=== PATIENT | female | born 1995 | race Caucasian/White ===

== ENCOUNTER → 2021-01-19 | Outpatient (CLI) | payer BC ==
[2021-01-19 17:20] LABS: Hemoglobin A1C 5.5 % (4.0-6.0)
[2021-01-19 18:44] LABS: ALT 16 U/L (8-44); AST 26 U/L (13-35); African American GFR (CKD) 117.1 (60.0-200.0); Glucose 96 mg/dL (70-110)
[2021-01-19 18:48] LABS: Estradiol 51.7 pg/mL
[2021-01-19 18:53] LABS: Prolactin 20.7 ng/mL (2.8-29.2)
[2021-01-19 18:54] LABS: Follicle Stimulating Hormone 5.2 mIU/mL
[2021-01-19 18:56] LABS: HCG,Quantitative Serum <2.0 mIU/mL
[2021-01-19 22:19] LABS: Thyroid Peroxidase Antibodies 48.3 U/mL (0.0-60.0)
[2021-01-19 23:34] LABS: Insulin Level 8.1 mIU/mL (3.0-25.0)
[2021-01-22 03:40] LABS: Varicella IgM Antibody 0.4 INDEX (<=0.90)
[2021-01-22 14:57] LABS: Anti-Mullerian Hormone 7.39 ng/mL (0.69 - 13.39)
== END | disposition home or self-care (01) ==
LOC: LABWHC1 09:29
PROVIDERS: ATTEND Physician Assistant
DX: N92.6 Irregular menstruation, unspecified (principal)
CPT/HCPCS: 36415; 82306; 82397; 82565; 82670; 82947; 83001; 83036; 83525; 84146; 84402; 84403; 84439; 84443; 84450; 84460; 84481; 84520; 84702; 86376; 86762; 86787; 86800; 86850; 86900; 86901

== ENCOUNTER → 2021-04-27 | Outpatient (CLI) | payer BC | END | disposition home or self-care (01) | LOC: LABWHC1 09:42 | PROVIDERS: ATTEND Obstetrics & Gynecology Reproductive Endocrinology | DX: N97.9 Female infertility, unspecified (principal) | CPT/HCPCS: 36415; 84144 ==

== ENCOUNTER → 2021-05-04 | Outpatient (CLI) | payer BC | END | disposition home or self-care (01) | LOC: LABWHC1 09:48 | PROVIDERS: ATTEND Obstetrics & Gynecology Reproductive Endocrinology | DX: N97.9 Female infertility, unspecified (principal) | CPT/HCPCS: 36415; 84702 ==